=== PATIENT | male | born 2000 | race Caucasian/White ===

== ENCOUNTER 2019-10-23 18:55 | Emergency (ER) | payer BC, SELFPAY ==
--- NOTE | ~2019-10-23 | US_ITS ---
EXAMINATION: US scrotum doppler DATE: 10/23/2019 20:10 INDICATION: Left testicular pain and swelling TECHNIQUE: Testicular sonogram utilizing grayscale and Doppler COMPARISON: None. FINDINGS: The right testis measures 4.9 x 2.8 x 2.5 cm. The left testis measures 5.0 x 3.1 x 2.4 cm. Symmetric normal grayscale appearance to both testes. There is normal vascular flow to both testes. Small anech oic bilateral epididymal cysts measuring up to 4 mm on the right and 2 mm on the left. The bilateral epididymides are otherwise normal with normal vascular flow. Left varicocele with vessels dilated to 3.6 mm which augment on color Doppler with Valsalva. Small anechoic left hydrocele. IMPRESSION: 1. Unremarkable bilateral testes and epididymides. 2. Left varicocele and small left hydrocele. Reviewed, dictated and finalized at location A.
[2019-10-23 19:00] VITALS: BP 164/68; PULSE 67; RESP 16; TEMP 36.9; O2SAT 100
--- NOTE | 2019-10-23 19:06 | ED.GENADULT ---
HPI - General Adult General Chief complaint: Urogenital-Male Stated complaint: groin pain Time Seen by Provider: 10/23/19 19:03 Source: patient and family Mode of arrival: ambulatory Limitations: no limitations History of Present Illness HPI narrative: Patient is a 19-year-old male who presents for evaluation of left testicular pain. Patient reports onset of symptoms 24 hours ago while the patient was showering. Onset was sudden in nature, not associated with redness or swelling, pain is dull, aching in nature, worse with movement. Patient denies fever, reports nausea, no vomiting, no upper abdominal pain, no pain with urination or hematuria. No history of nephrolithiasis. Patient was seen by PA at his primary care physician's office, referred to this facility for ultrasound. Related Data Home Medications Medication Instructions Recorded Confirmed levothyroxine 50 mcg tablet 50 mcg PO DAILY 07/02/19 lisinopril 20 mg tablet 20 mg PO DAILY 10/23/19 Allergies Allergy/AdvReac Type Severity Reaction Status Date / Time azithromycin Allergy Mild Rash Verified 10/23/19 19:02 Review of Systems Review of Systems: Narrative: CONSTITUTIONAL: Denies fever CARDIOVASCULAR: Denies chest pain RESPIRATORY: Denies cough or dyspnea. GASTROINTESTINAL: Denies abdominal pain SKIN: Denies rash MUSCULOSKELETAL: Denies back pain NEUROLOGIC: Denies headache PMFSH Past Medical History Medical History HTN (hypertension), benign Hypertension Hypothyroidism Surgical History Surgical History History of adenoidectomy Status post myringotomy with tube placement of both ears Family History Family History Father Hypertension Social History Social History Smoking status: Never smoker Second hand tobacco smoke exposure: No Alcohol intake: never Substance use: never Substance use type: does not use Gender identity (if verbalized by the patient): Male Exam Narrative: Exam Narrative: GENERAL: Awake, alert, conversant HEAD: Normocephalic, atraumatic. EYES: PERRLA and EOMI. ENT: Nares clear, no rhinorrhea or epistaxis. Mucous membranes moist. NECK: Supple. CHEST: No respiratory distress, breathing even and non labored HEART: Regular rate, sinus rhythm ABDOMEN:Non distended, non tender : Right testicle normal, no edema or erythema. No hernia. Left testicle tender to palpation, no erythema or edema, no lesions. No inguinal lymphadenopathy. Penis is circumcised. Glans is normal without lesions. EXTREMITIES: Normal range of motion. No edema. SKIN: Warm, dry, no rash. NEURO:No focal deficits. Alert and oriented x3 Course Vital Signs Vital signs: Vital Signs Temperature 36.9 C 10/23/19 19:00 Pulse Rate 67 10/23/19 19:00 Respiratory Rate 16 10/23/19 19:00 Blood Pressure 164/68 H 10/23/19 19:00 Pulse Oximetry 100 10/23/19 19:00 Temperature 36.9 C 10/23/19 19:00 Pulse Rate 67 10/23/19 19:00 Respiratory Rate 16 10/23/19 19:00 Blood Pressure 164/68 H 10/23/19 19:00 Pulse Oximetry 100 10/23/19 19:00 Medical Decision Making MDM Narrative Medical decision making narrative: Pt presented for evaluation of left testicular pain. Pt seen by his PCP and referred here for evaluation. One exam, mild tenderness to left testicle without erythema or edema. Pt lab results reassuring. No UTI. No prostatitis type symptoms. No abdominal pain, no RLQ pain. No signs of appendicitis on exam. US normal without signs of torsion or epididymitis. At this point, I do not feel that the patient will need any antibiotic. Patient advised anti-inflammatories, scrotal support. Patient given urology follow-up. Patient then discharged home. Differential Diagnosis Differential Diagnosis: Testicular t
[2019-10-23 19:37] LABS: Basophils Percent Auto 0.7 % (0.2-1.2); Eosinophils Percent Auto 0.7 % (0-4.4); Hematocrit 42.5 % (42.0-52.0); Hemoglobin 14.5 g/dL (14.0-18.0); Immature Granulocyte Absolute 0.01 K/mm3 (0.00-0.031); Immature Granulocyte Percent A 0.2 % (0-0.5); Lymphocytes Absolute Auto 1.56 K/mm3 (0.9-3.2); Lymphocytes Percent Auto 26.6 % (18.3-44.2); Mean Corpuscular HGB Conc 34.1 g/dl (32-36); Mean Corpuscular Hemoglobin 29.5 pg (26-34); Mean Corpuscular Volume 86.6 fl (80-100); Mean Platelet Volume 11.3 fl (7.4-10.4); Monocytes Absolute Auto 0.4 K/mm3 (0.1-0.6); Monocytes Percent Auto 7.3 % (2.6-8.5); Neutrophils Absolute Auto 3.8 K/mm3 (1.3-6.7); Neutrophils Percent Auto 64.5 % (45.5-73.1); Platelet Count Result 172 k/mm3 (150-375); Red Blood Count 4.91 M/mm3 (4.6-6.20); Red Cell Distribution Width 12.5 % (11.5-14.5); White Blood Count 5.9 K/mm3 (4.5-10.0)
[2019-10-23 19:39] LABS: Add Urine Microscopic? NO; Appearance Urine Clear (Clear); Bilirubin Urine Negative (Negative); Blood Urine Negative (Negative); Color Urine Straw (Yellow); Glucose Urine UA Negative (Negative); Ketones Urine Negative (Negative); Leukocyte Esterase Ur Negative LEU/UL (Negative); Nitrate Urine Negative (Negative); Protein Urine Negative (Negative); Urobilinogen Urine Negative mg/dL (<2.0)
[2019-10-23] MEDS: ACETAMINOPHEN 500 MG TABLET 1000 MG PO (19:42)
[2019-10-23] MEDS: ONDANSETRON INJ 4 MG/2 ML VIAL IV PUSH (19:42)
[2019-10-23] MEDS: SODIUM CHLORIDE 0.9% IV 1,000 ML 999 ML IV CONT (19:43)
[2019-10-23 19:49] LABS: Alanine Aminotransferase 16 U/L (4-50); Albumin Level 4.8 g/dL (3.5-5.1); Alkaline Phosphatase 67 U/L (38-126); Aspartate Amino Transferase 23 U/L (17-59); Bilirubin,Total 0.4 mg/dL (0.2-1.3); Blood Urea Nitrogen 17 mg/dL (9-20); Calcium 9.4 mg/dL (8.4-10.2); Carbon Dioxide 25 mmol/L (22-30); Chloride 101 mmol/L (98-107); Estimated CRCL calculation 121 ml/min; Estimated Glomerular Filt Rate > 60; Glucose 132 mg/dL (75-110); Potassium 3.8 mmol/L (3.4-5.0); Sodium 137 mmol/L (137-145)
== END 2019-10-23 21:50 | disposition home or self-care (01) ==
PROVIDERS: Emergency Provider Emergency Medicine; PCP Family Medicine
DX: I86.1 Scrotal varices (principal); I10 Essential (primary) hypertension; E03.9 Hypothyroidism, unspecified
CPT/HCPCS: 36415; 76870; 80053; 81003; 85025; 93976; 96374; 99284; A9270; J2405; J7030